=== PATIENT | male | born 1950 | race Hispanic/Latino ===

== ENCOUNTER 2024-12-06 16:47 | Outpatient (RCR) | payer MEDICARE | END 2024-12-09 | LOC: PT 16:47 | PROVIDERS: ATTEND Specialist | DX: S70.01XA Contusion of right hip, initial encounter (principal); S76.011A Strain of muscle, fascia and tendon of right hip, initial encounter ==

== ENCOUNTER 2025-01-01 16:56 | Outpatient (RCR) | payer MEDICARE | END 2025-01-08 | LOC: PT 16:56 | PROVIDERS: ATTEND Specialist | DX: S70.01XA Contusion of right hip, initial encounter (principal); S76.011A Strain of muscle, fascia and tendon of right hip, initial encounter ==